=== PATIENT | female | born 2005 | race Caucasian/White ===

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

== ENCOUNTER 2024-07-21 09:46 | Emergency (ER) | payer SELFPAY ==
[2024-07-21 10:40] LABS: Specific Gravity 1.029 (1.005-1.030)
[2024-07-21] MEDS ORDERED: DIPHENHYDRAMINE 50 MG/ML VIAL ONE (10:40)
[2024-07-21] MEDS ORDERED: METOCLOPRAMIDE 10 MG/2mL INJ ONE (10:40)
[2024-07-21 10:41] LABS: Specific Gravity 1.029 (1.005-1.030); Sqamous Epithelial <5 /HPF (None Seen); Urine Bacteria None Seen /HPF (<20); Urine Bilirubin NEGATIVE (Negative); Urine Blood 2+ (Negative); Urine Clarity Turbid (Clear); Urine Color Yellow (Yellow); Urine Culture Reflex Order NOT NEEDED; Urine Glucose NEGATIVE (Negative); Urine Ketones 1+ (Negative); Urine Micro Reflex YN NO BILL MICROSCOPIC; Urine Mucus 4+ /HPF (None Seen); Urine Nitrite NEGATIVE (Negative); Urine Protein 1+ (Negative); Urine Urobilinogen 1+ (Normal); Urine WBC <5 /HPF (<5); Urine Yeast (Budding) Trace /HPF (None Seen)
[2024-07-21] MEDS ORDERED: NA CHLORIDE 0.9% 1,000 ML ONE (10:41)
[2024-07-21 10:58] LABS: Absolute Eosinophils 0.1 K/uL (0-0.5); Absolute Lymphocytes (CBC) 2.8 K/uL (0.7-4.9); Absolute Monocytes 0.3 K/uL (0.1-1.3); Absolute Neutrophil 3.2 K/uL (1.8-8.0); Basophils % 0.6 % (0-1.3); Eosinophils % 2.3 % (0-4.4); Hematocrit 39.5 % (36.0-45.0); Hemoglobin 13.3 g/dL (12.0-15.0); Lymphocytes % 42.8 % (15.3-44.8); MCH 30.7 pg (27.0-35.0); MCHC 33.6 g/dL (32.0-36.0); MCV 91.4 fL (80-100); Neutrophils % 49.3 % (41.7-73.7); Platelets 344 thou/uL (152-406); RBC Red Blood Cell Count 4.32 M/uL (3.86-4.86); Red Cell Distribution Width 12.8 % (12.1-15.2)
[2024-07-21 11:18] LABS: Anion Gap 5.5 mEq/L (5.0-15.0); Potassium 3.5 mEq/L (3.5-5.1)
--- NOTE | 2024-07-21 13:01 | RAD REPORT ---
EXAMINATION: ONE VIEW CHEST XR CLINICAL INDICATION: Female, 19 years old.COUGH TECHNIQUE: 1 View, AP supine, X-ray of the chest was performed. [id number]. COMPARISON: 11/09/2017 FINDINGS: Lungs and pleura: Subtle nodularity in the lung bases bilaterally. No effusion. Heart and mediastinum: Normal heart size. Unremarkable mediastinal contours. Osseous structures: No acute abnormality. Tubes/lines: None Other: None. IMPRESSION: Question some subtle nodularity in the lung bases that could reflect mild infection or inflammation. No consolidative pneumonia.
--- NOTE | 2024-07-21 13:15 | EDPHYS ---
Physician Documentation [facility] Name: Prashanth Otoole Age: 19 yrs Sex: Female : 2005 Arrival Date: 07/21/2024 Time: 09:46 Bed 17 Private MD: ED Physician Marcelo Jensen HPI: 07/21 11:33 This 19 yrs old Female presents to ER via Ambulatory with complaints of SICK FOR 2 ec2 WEEKS. 11:33 Patient arrives today for feeling unwell ongoing for approximately 2 weeks. Patient ec2 reports cough and congestion and increased fatigue and malaise. Some nausea and generally feeling unwell.. Historical: - Allergies: 10:04 FLU VACCINE; hb 10:04 Omnicef; hb 10:04 PECANS; hb 10:04 Strawberries; hb - Home Meds: 10:04 None [Active]; hb - PMHx: 10:04 Anemia; Chronic pain; ibs; Major Depressive Disorder; Schizophrenia; sciatica; hb - Immunization history:: Adult Immunizations up to date. - Infectious Disease History:: Denies. - Social history:: Smoking status: Patient denies any tobacco usage or history of. ROS: 11:33 Constitutional: as per hpi ec2 Exam: 11:33 Constitutional: GEN: NAD Head: atraumatic Eyes: EOMI Ears: External ears are ec2 normal. CV: regular rate LUNGS: no respiratory distress, no wheezes, no rales, no rhonchi ABD: non-distended SKIN: no evidence of rashes MSK: no evidence of trauma Vital Signs: 10:02 BP 105 / 67; Pulse 86; Resp 16; Temp 98.5(O); Pulse Ox 100% on R/A; Weight 47.63 kg; hb Height 5 ft. 3 in. ; Pain 3/10; 10:02 Body Mass Index 18.60 (47.63 kg, 160.02 cm) hb 10:02 Pain Scale: Adult hb MDM: 11:13 Medical Screening Exam initiated ec2 11:33 Data reviewed: vital signs. ED course: Patient arrives today for 2 weeks of the upper ec2 respiratory symptoms. Examination is unrevealing. Will obtain viral swabs and lab work as well as chest x-ray. Differential includes viral infection, pneumonia, UTI.. 11:34 ED course: Patient arrives today for feeling unwell ongoing for approximately 2 weeks. ec2 Patient reports cough and congestion and increased fatigue and malaise. Some nausea and generally feeling unwell metabolic profile is unrevealing, urine is noninfectious appearing. CBC is nonactionable, testing negative. Patient declined flu and COVID testing.. 13:02 ED course: Chest x-ray with possible pneumonia, will start the patient on antibiotic ec2 therapy and have the patient follow-up PCP. Return precautions given.. 07/21 10:07 Order name: CBC with Diff; Complete Time: ec2 07/21 10:07 Order name: BMP; Complete Time: ec2 07/21 10:07 Order name: UAM; Complete Time: ec2 07/21 10:07 Order name: Test, Urine; Complete Time: ec2 07/21 11:33 Order name: CXR XRAY; Complete Time: 13:02 ec2 Administered Medications: 10:55 Drug: NS 0.9% IV 1000 ml IV at 1000 ml once; to be given as a bolus over 60 minutes ll1 Route: IV; Rate: 1000 ml; Site: left antecubital; 10:55 Drug: metoCLOPramide IVP 10 mg IVP once; over 1 to 2 minutes Route: IVP; Site: left ll1 antecubital; 10:56 Drug: diphenhydrAMINE IVP 25 mg IVP once Route: IVP; Site: left antecubital; ll1 Disposition Summary: 07/21/24 13:14 Discharge Ordered Notes: Location: Home ec2 Condition: Stable ec2 Diagnosis - Pneumonia, unspecified organism ec2 Followup: ec2 - With: Private Physician - When: - Reason: Re-evaluation by your physician Discharge Instructions: - Discharge Summary Sheet ec2 - Community-Acquired Pneumonia, Adult ec2 Forms: - Medication Reconciliation Form ec2 - Antibiotic Education ec2 - Prescription Opioid Use ec2 - Patient Portal Instructions ec2 - Leadership Thank You Letter ec2 Prescriptions: - Augmentin 875-125 mg Oral tablet - take 1 tablet ORAL route every 12 hours for 7 days; 14 tablet; Refills: 0, ec2 Product Selection Permitted Signatures: Dispatcher [employer] EDSola Elena RN RN Gera, Lynsay, RN RN ll1 Jensen, Marcelo, MD MD ec2
--- NOTE | 2024-07-21 13:15 | ER ---
Nurse's Notes [facility] Name: Prashanth Otoole Age: 19 yrs Sex: Female : 2005 Arrival Date: 07/21/2024 Time: 09:46 Bed 17 Private MD: Diagnosis: Pneumonia, unspecified organism Presentation: 07/21 10:02 Chief complaint: Malaise, N/D, headaches, and intermittent subjective fever x 2 weeks. hb Coronavirus screen: Client presents with at least one sign or symptom that may indicate coronavirus-19. Provider contacted for isolation considerations. Ebola Screen: No symptoms or risks identified at this time. Initial Sepsis Screen: Does the patient meet any 2 criteria? No. Patient's initial sepsis screen is negative. Does the patient have a suspected source of infection? No. Patient's initial sepsis screen is negative. Risk Assessment: Do you want to hurt yourself or someone else? Patient reports no desire to harm self or others. Onset of symptoms was July 04, 2024. 10:02 Method Of Arrival: Ambulatory hb 10:02 Acuity: BALBIR 3 hb Historical: - Allergies: 10:04 FLU VACCINE; hb 10:04 Omnicef; hb 10:04 PECANS; hb 10:04 Strawberries; hb - Home Meds: 10:04 None [Active]; hb - PMHx: 10:04 Anemia; Chronic pain; ibs; Major Depressive Disorder; Schizophrenia; sciatica; hb - Immunization history:: Adult Immunizations up to date. - Infectious Disease History:: Denies. - Social history:: Smoking status: Patient denies any tobacco usage or history of. Screenin:48 [facility] ED Fall Risk Assessment (Adult) History of falling in the last 3 months, ll1 including since admission No falls in past 3 months (0 pts) Confusion or Disorientation No (0 pts) Intoxicated or Sedated No (0 pts) Impaired Gait No (0 pts) Mobility Assist Device Used No (0 pt) Altered Elimination No (0 pt) Score/Fall Risk Level 0 - 2 = Low Risk. Abuse screen: Denies threats or abuse. Nutritional screening: No deficits noted. Tuberculosis screening: No symptoms or risk factors identified. Assessment: 10:40 General: Appears in no apparent distress. Behavior is calm, cooperative, appropriate ll1 for age, Reports fever for feeling ill for fatigue for. Pain: Complains of pain in head Quality of pain is described as aching. Neuro: Reports headache weakness. GI: Reports diarrhea, nausea. 10:56 Reassessment: No changes from previously documented assessment. Patient and/or family ll1 updated on plan of care and expected duration. Pain level reassessed. Patient is alert, oriented x 3, equal unlabored respirations, skin warm/dry/pink. 12:48 Reassessment: No changes from previously documented assessment. x-ray at . ll1 Vital Signs: 10:02 BP 105 / 67; Pulse 86; Resp 16; Temp 98.5(O); Pulse Ox 100% on R/A; Weight 47.63 kg; hb Height 5 ft. 3 in. ; Pain 310; 10:02 Body Mass Index 18.60 (47.63 kg, 160.02 cm) hb 10:02 Pain Scale: Adult hb ED Course: 09:52 Patient arrived in ED. mg5 09:53 Marcelo Jensen MD is Attending Physician. ec2 10:04 Triage completed. hb 10:05 Arm band placed on. hb 10:38 Patient placed in an exam room, on a stretcher. ll1 10:48 Patient has correct armband on for positive identification. Provided Education on: ER ll1 procedures and process. 10:55 BMP Sent. nh2 10:55 CBC with Diff Sent. nh2 10:55 Inserted saline lock: 20 gauge in left antecubital area, using aseptic technique. Blood nh2 collected. Flushed with 10 mL NS. 10:56 Warm blanket given. ll1 11:23 Darnell Boss RN is Primary Nurse. ll1 12:57 CXR XRAY In Process Unspecified. EDMS 13:31 No provider procedures requiring assistance completed. IV discontinued, intact, hb bleeding controlled, No redness/swelling at site. Pressure dressing applied. Administered Medications: 10:55 Drug: NS 0.9% IV 1000 ml IV at 1000 ml once; to be given as a bolus over 60 minutes ll1 Route: IV; Rate: 1000 ml; Site: left antecubital; 10:55 Drug: metoCLOPramide IVP 10 mg IVP once; over 1 to 2 minutes Route: IVP; Site: left ll1 antecubital; 10:56 Drug: diphenhydrAMINE IVP 25 mg IVP once Route: IVP; Site: left antecubital; ll1 Medication: 10:48 VIS not applicable for this client. ll1 Outcome: 13:14 Discharge ordered by . ec2 13:32 Discharged to home ambulatory, 13:32 Condition: stable 13:32 Discharge instructions given to patient, Instructed on discharge instructions, follow up and referral plans. medication usage, Demonstrated understanding of instructions, follow-up care, medications, Prescriptions given X 1, 13:32 Patient left the ED. hb Signatures: Dispatcher [employer] EDSola Elena RN RN Darnell Boss RN RN ll1 Marni Quiroz mg5 Marcelo Jensen MD MD ec2 Hector Riddle Jr nh2
[2024-07-21 13:41] VITALS: BP 105/67; TEMP 98.5; O2SAT 100
== END 2024-07-21 13:32 | disposition home or self-care (01) ==
LOC: ER 09:46
DX: J18.9 Pneumonia, unspecified organism (principal)
CPT/HCPCS: 36415; 71045; 80048; 81001; 81025; 85025; 96374; 96375; 99284; J1200; J2765; J7030

== ENCOUNTER 2024-07-27 14:43 | Emergency (ER) | payer OTHER ==
[2024-07-27] MEDS ORDERED: ACETAMINOPHEN 500 MG TAB ONE (15:16)
[2024-07-27] MEDS ORDERED: ONDANSETRON 4 MG/2 ML VIAL ONE (15:16)
[2024-07-27] MEDS ORDERED: FENTANYL CITR 100 MCG/2 ML ONE (15:17)
[2024-07-27 15:59] LABS: Absolute Basophils 0.1 K/uL (0-0.5); Absolute Lymphocytes (CBC) 1.8 K/uL (0.7-4.9); Absolute Monocytes 0.7 K/uL (0.1-1.3); Absolute Neutrophil 13.4 K/uL (1.8-8.0); Basophils % 0.4 % (0-1.3); Eosinophils % 0.3 % (0-4.4); Hematocrit 41.8 % (36.0-45.0); Lymphocytes % 11.1 % (15.3-44.8); MCH 30.3 pg (27.0-35.0); MCHC 33.4 g/dL (32.0-36.0); MCV 90.6 fL (80-100); MPV 8.2 fL (7.6-11.3); Monocytes % 4.6 % (3.3-12.3); Neutrophils % 83.6 % (41.7-73.7); Platelets 376 thou/uL (152-406); RBC Red Blood Cell Count 4.62 M/uL (3.86-4.86); Red Cell Distribution Width 12.8 % (12.1-15.2)
[2024-07-27 16:12] LABS: PT Prothrombin Time 13.8 SECONDS (9.4-12.5); PTT, Activated Partial Thromb 37.9 SECONDS (24.3-36.9); Protime INR 1.24
[2024-07-27 16:13] LABS: Albumin 4.5 g/dL (3.4-5.0); Albumin/Globulin Ratio 1.1 (1.1-1.8); Anion Gap 10.7 mEq/L (5.0-15.0); Bilirubin Total 0.7 mg/dL (0.2-1.0); Globulin 4.1 g/dL (2.3-3.5); Potassium 3.7 mEq/L (3.5-5.1); Protein, Total 8.6 g/dL (6.4-8.2)
[2024-07-27 16:16] LABS: Specific Gravity 1.021 (1.005-1.030); Sqamous Epithelial <5 /HPF (None Seen); Urine Bacteria <20 /HPF (<20); Urine Bilirubin NEGATIVE (Negative); Urine Blood Negative (Negative); Urine Clarity Extremely Turbid (Clear); Urine Color Light-Yellow (Yellow); Urine Culture Reflex Order REFLEXED; Urine Glucose NEGATIVE (Negative); Urine Ketones 1+ (Negative); Urine Microscopic Reflex YN ORDER UMIC; Urine Mucus Slight /HPF (None Seen); Urine Nitrite NEGATIVE (Negative); Urine Protein 1+ (Negative); Urine Urobilinogen Normal (Normal); Urine WBC >50 /HPF (<5); Urine pH 8.5 (5.0-7.0)
[2024-07-27 16:17] LABS: Specific Gravity 1.021 (1.005-1.030)
--- NOTE | 2024-07-27 18:21 | RAD REPORT ---
EXAMINATION: CT Abdomen Pelvis W Contrast CLINICAL INDICATION: Female, 19 years old. Abd pain;Fever;Flank pain TECHNIQUE: CT abdomen and pelvis was performed, after the administration of IV contrast, as per [facility] protocol. Axial, sagittal and coronal reconstructions were obtained. One or more of the following dose reduction techniques were used: Automated exposure control, adjustment of the mA and k V according to patient size, and iterative reconstruction. Unless otherwise specified, incidental findings do not require dedicated imaging follow-up. COMPARISON: No prior exam. FINDINGS: LOWER CHEST: The visualized lung bases are clear. LIVER: Normal in size and contour. Small regions of focal fatty infiltration near the falciform ligam ent fissure. No suspicious focal lesion. BILIARY SYSTEM: No suspicious abnormalities. SPLEEN: Normal size. No focal lesion. PANCREAS: No mass, ductal dilation, or viet-pancreatic fluid. ADRENALS: Normal; no mass. KIDNEYS: Wedge-shaped region of left upper to midpole cortical hypoenhancement with adjacent mild per inephric fat stranding. Normal size and contour otherwise. No hydronephrosis. No radiopaque calculi. URINARY BLADDER: Decompressed limiting evaluation, however mild diffuse wall prominence is noted ante riorly. GASTROINTESTINAL TRACT: No evidence of free air, significant intra-abdominal free fluid, bowel obstru ction or abscess. APPENDIX: Normal appendix. LYMPH NODES: No lymphadenopathy. MUSCULOSKELETAL: No acute or suspicious osseous abnormality. ADDITIONAL FINDINGS: None. IMPRESSION: Wedge-shaped region of left renal cortical hypoenhancement as above, suggesting focal pyelonephritis. Mild diffuse urinary bladder wall prominence noted anteriorly, may suggest ongoing cystitis, although decompression limits evaluation.
[2024-07-27] MEDS ORDERED: KETOROLAC 30 MG/ML INJ ONE (18:54)
[2024-07-27] MEDS ORDERED: CIPROFLOXACIN 400mg IV 400 MG/200 ML BAG IV ONE (18:55)
[2024-07-27] MEDS ORDERED: METOCLOPRAMIDE 10 MG/2mL INJ ONE (18:55)
[2024-07-27] MEDS ORDERED: NA CHLORIDE 0.9% 50 ML ONE (18:56)
[2024-07-27] MEDS ORDERED: DIPHENHYDRAMINE 50 MG/ML VIAL ONE (18:56)
--- NOTE | 2024-07-27 19:02 | EDPHYS ---
Physician Documentation [facility] Name: Prashanth Otoole Age: 19 yrs Sex: Female : 2005 Arrival Date: 07/27/2024 Time: 14:43 Bed 20 Private MD: ED Physician Meño Polanco HPI: 07/27 15:15 This 19 yrs old Female presents to ER via Ambulatory with complaints of Urinary Problem.sb4 15:16 Burning with urination and suprapubic pain began yesterday. Developed a fever this sb4 morning. Also endorses nausea. States that she was hospitalized about a month ago for an antibiotic resistant kidney infection. Feels that her symptoms today are exactly the same as then. Has been on Augmentin for pneumonia. States those symptoms have improved. 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 - Infectious Disease History:: Denies. - Social history:: Smoking status: Patient denies any tobacco usage or history of. Patient/guardian denies using alcohol. ROS: 15:18 Cardiovascular: Negative for chest pain, palpitations, and edema, sb4 15:18 Constitutional: Positive for fatigue, fever, malaise, 15:18 Abdomen/GI: Positive for nausea, 15:18 Back: Positive for flank pain, bilaterally, 15:18 : Positive for burning with urination, 15:18 All other systems are negative, Exam: 15:18 Head/Face: Normocephalic, atraumatic. Eyes: Extra-ocular motions intact. Periorbital sb4 areas with no swelling, redness, or edema. ENT: Mucous membranes moist. Cardiovascular: Regular rate and rhythm with a normal S1 and S2. Respiratory: No increased work of breathing, no retractions or nasal flaring. Skin: Warm, dry with normal turgor. Normal color with no rashes, no lesions, and no evidence of cellulitis. 15:18 Constitutional: The patient appears alert, awake, uncomfortable, 15:18 Abdomen/GI: Palpation: soft, mild abdominal tenderness, in the suprapubic area, 15:18 Back: CVA tenderness, is noted bilaterally, Vital Signs: 15:02 BP 114 / 71; Pulse 94; Resp 17; Temp 101.4(O); Pulse Ox 100% on R/A; MAP 81 mmHg; tm6 Weight 47.63 kg; Height 5 ft. 3 in. ; Pain 7/10; 15:30 BP 99 / 56; db 16:00 BP 91 / 65; Pulse 88; Resp 14; Pulse Ox 100% on R/A; db 16:30 BP 102 / 65; Pulse 91; Resp 18; Pulse Ox 98% on R/A; db 17:30 BP 96 / 62; Pulse 86; Resp 16; Pulse Ox 100% on R/A; db 18:00 BP 100 / 62; Pulse 74; Resp 16; Pulse Ox 99% on R/A; db 18:30 Temp 98.8(O); db 19:39 BP 96 / 58; Pulse 75; Resp 23; Pulse Ox 99% on R/A; jb4 20:14 BP 97 / 68; Pulse 88; Resp 16; Temp 98.3; Pulse Ox 100% on R/A; jb4 15:02 Body Mass Index 18.60 (47.63 kg, 160.02 cm) tm6 15:02 Pain Scale: Adult tm6 MDM: 15:07 Medical Screening Exam initiated sb4 18:33 Data reviewed: vital signs, nurses notes, lab test result(s), radiologic studies, and sb4 as a result, I will discharge patient. Consideration of Admission/Observation Escalation of care including admission/observation considered. Counseling: I had a detailed discussion with the patient and/or guardian regarding the historical points, exam findings, and any diagnostic results supporting the discharge/admit diagnosis, lab results, radiology results, the need for further work-up and treatment in the hospital, to return to the emergency department if symptoms worsen or persist or if there are any questions or concerns that arise at home. Refusal of service: The patient/guardian displays adequate decision making capability and despite a detailed discussion of alternatives, benefits, risks, and consequences refuses: Admission to the hospital for further work-up and treatment. ED course: patient does not want to stay in the hospital, prefers trying outpatient treatment first. will return for any new or worsening symptoms. 07/27 15:14 Order name: Blood Culture Adult (2) 4 07/27 15:14 Order name: CBC with Diff; Complete Time: 16:02 sb4 07/27 15:14 Order name: CMP; Complete Time: 16:14 sb4 07/27 15:14 Order name: Lactate w/ 2H reflex if indic.; Complete Time: 16:22 sb4 07/27 15:14 Order name: Protime (+inr); Complete Time: 16:14 sb4 07/27 15:14 Order name: Ptt, Activated; Complete Time: 16:14 sb4 07/27 15:14 Order name: Urinalysis w/ reflexes; Complete Time: 16:22 sb4 07/27 15:14 Order name: Test, Urine; Complete Time: 16:22 4 07/27 16:24 Order name: Urine Culture [facility] 07/27 15:14 Order name: CT Abd/Pelvis - IV Contrast Only; Complete Time: 18:22 4 07/27 15:14 Order name: Cardiac monitoring; Complete Time: 15:30 4 07/27 15:14 Order name: IV Saline Lock - Large Bore; Complete Time: 16:01 sb4 07/27 15:14 Order name: Labs collected and sent; Complete Time: 16:01 4 07/27 15:14 Order name: O2 Per Protocol; Complete Time: 15:30 4 07/27 15:14 Order name: O2 Sat Monitoring; Complete Time: 15:30 4 07/27 15:14 Order name: Vital Signs; Complete Time: 16:01 sb4 Administered Medications: 15:27 Drug: Acetaminophen PO 1000 mg PO once Route: PO; db 18:16 Follow up: Response: No adverse reaction db 15:49 Drug: Ondansetron IVP 4 mg IVP once; over 2 minutes Route: IVP; Site: right antecubital;db 18:15 Follow up: Response: No adverse reaction db 15:52 Drug: fentaNYL (PF) IVP 25 mcg IVP once Route: IVP; Site: right antecubital; db 18:15 Follow up: Response: No adverse reaction db 19:02 Drug: diphenhydrAMINE IVP 25 mg IVP once Route: IVP; Site: right antecubital; db 20:15 Follow up: Response: No adverse reaction jb4 19:05 Drug: Ketorolac IVP 15 mg IVP once Route: IVP; Site: right antecubital; db 20:15 Follow up: Response: No adverse reaction; Marked relief of symptoms jb4 19:08 Drug: Ciprofloxacin IVPB 400 mg 200 ml IVPB once over 60 mins Volume: 200 ml; Route: db IVPB; Infused Over: 60 mins; Site: right antecubital; 20:16 Follow up: Response: No adverse reaction; IV Status: Completed infusion; IV Intake: jb4 200ml 19:08 Drug: metoCLOPramide IVP 10 mg IVP once; over 1 to 2 minutes Route: IVP; Site: right db antecubital; 20:15 Follow up: Response: No adverse reaction; Marked relief of symptoms jb4 Disposition Summary: 07/27/24 19:02 Discharge Ordered Notes: Location: Home sb4 Problem: new sb4 Symptoms: have improved sb4 Condition: Stable sb4 Diagnosis - Pyelonephritis acute sb4 Followup: sb4 - With: Emergency Department - When: As needed - Reason: Fever > 102 F, Worsening of condition Discharge Instructions: - Discharge Summary Sheet sb4 - Pyelonephritis, Adult, [id number] sb4 Forms: - Antibiotic Education sb4 - Patient Portal Instructions sb4 - Leadership Thank You Letter sb4 Prescriptions: - Cipro 500 mg Oral Tablet - take 1 tablet ORAL route every 12 hours for 7 days; 14 tablet; Refills: 0, sb4 Product Selection Permitted Addendum: 07/31/2024 08:17 Co-signature as Attending Physician, Meño Polanco MD I reviewed the patient's care r n provided by the Advanced Practice Provider and agree with the diagnosis and treatment plan. Signatures: Dispatcher [employer] Meño Gonsales MD MD rn Benton, Danielle RN RN Tigist Louis PA-C PA-C sb4 Oli Monge RN RN tm6 Grzegorz Ivy RN jb4
--- NOTE | 2024-07-27 19:02 | ER ---
Nurse's Notes [facility] Name: Prashanth Otoole Age: 19 yrs Sex: Female : 2005 Arrival Date: 07/27/2024 Time: 14:43 Bed 20 Private MD: Diagnosis: Pyelonephritis acute Presentation: 07/27 15:02 Chief complaint: Patient states: suprapubic pain, hurts to breathe down my spine. Sharp tm6 pains on bottom of back, both sides. Burning when I pee, fever, frequency of urination. Started yesterday. Coronavirus screen: Client denies travel out of the [place] in the last 14 days. Ebola Screen: Patient negative for fever greater than or equal to 101.5 degrees Fahrenheit, and additional compatible Ebola Virus Disease symptoms Patient denies exposure to infectious person. Patient denies travel to an Ebola-affected area in the 21 days before illness onset. No symptoms or risks identified at this time. Initial Sepsis Screen: Does the patient meet any 2 criteria? Temp <36.0*C (96.8*F)) or > 38.3*C (100.9*F). HR > 90 bpm. Does the patient have a suspected source of infection? No. Patient's initial sepsis screen is negative. Risk Assessment: Do you want to hurt yourself or someone else? Patient reports no desire to harm self or others. Onset of symptoms was July 26, 2024. 15:02 Method Of Arrival: Ambulatory tm6 15:02 Acuity: BALBIR 3 tm6 Triage Assessment: 15:04 General: Appears in no apparent distress. Behavior is calm, cooperative. Pain: tm6 Complains of pain in back and pelvis Pain currently is 10 out of 10 on a pain scale. EENT: No signs and/or symptoms were reported regarding the EENT system. Neuro: Level of Consciousness is awake, alert, obeys commands, Oriented to person, place, time, situation. Cardiovascular: Reports lightheadedness, Patient's skin is warm and dry. Respiratory: Airway is patent Respiratory effort is even, unlabored, Respiratory pattern is regular, symmetrical. GI: No signs and/or symptoms were reported involving the gastrointestinal system. Abdomen is flat, non-distended. : Reports burning with urination, pain in suprapubic area flank(s), urinary frequency. Derm: No signs and/or symptoms reported regarding the dermatologic system. Musculoskeletal: Reports pain in back and pelvis. 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 - Infectious Disease History:: Denies. - Social history:: Smoking status: Patient denies any tobacco usage or history of. Patient/guardian denies using alcohol. Screenin:03 [facility] ED Fall Risk Assessment (Adult) History of falling in the last 3 months, db including since admission No falls in past 3 months (0 pts) Confusion or Disorientation No (0 pts) Intoxicated or Sedated No (0 pts) Impaired Gait No (0 pts) Mobility Assist Device Used No (0 pt) Altered Elimination No (0 pt) Score/Fall Risk Level 0 - 2 = Low Risk Oriented to surroundings, Maintained a safe environment. Abuse screen: Denies threats or abuse. Denies injuries from another. Nutritional screening: No deficits noted. Tuberculosis screening: No symptoms or risk factors identified. Assessment: 16:03 Reassessment: Patient appears in no apparent distress at this time. Patient and/or db family updated on plan of care and expected duration. Pain level reassessed. Patient is alert, oriented x 3, equal unlabored respirations, skin warm/dry/pink. General: Appears in no apparent distress. comfortable, Behavior is calm, cooperative. Neuro: Level of Consciousness is awake, alert, obeys commands, Oriented to person, place, time, situation. Respiratory: Airway is patent Respiratory effort is even, unlabored, Respiratory pattern is regular, symmetrical. 16:29 Reassessment: Patient appears in no apparent distress at this time. Patient and/or db family updated on plan of care and expected duration. Pain level reassessed. Patient is alert, oriented x 3, equal unlabored respirations, skin warm/dry/pink. 18:32 Reassessment: Patient appears in no apparent distress at this time. Patient and/or db family updated on plan of care and expected duration. Pain level reassessed. Patient is alert, oriented x 3, equal unlabored respirations, skin warm/dry/pink. Patient states feeling better. Patient states symptoms have improved. 19:36 Reassessment: Pt resting in bed with eyes closed, respirations are even and unlabored jb4 with no s/s of pain or distress noted. D/c pending completion of IV antibiotics. 20:14 Reassessment: Patient appears in no apparent distress at this time. Patient and/or jb4 family updated on plan of care and expected duration. Pain level reassessed. Patient is alert, oriented x 3, equal unlabored respirations, skin warm/dry/pink. Pt denies wanting to be admitted and verbalizes wanting to go home. Vital Signs: 15:02 BP 114 / 71; Pulse 94; Resp 17; Temp 101.4(O); Pulse Ox 100% on R/A; MAP 81 mmHg; tm6 Weight 47.63 kg; Height 5 ft. 3 in. ; Pain 7/10; 15:30 BP 99 / 56; db 16:00 BP 91 / 65; Pulse 88; Resp 14; Pulse Ox 100% on R/A; db 16:30 BP 102 / 65; Pulse 91; Resp 18; Pulse Ox 98% on R/A; db 17:30 BP 96 / 62; Pulse 86; Resp 16; Pulse Ox 100% on R/A; db 18:00 BP 100 / 62; Pulse 74; Resp 16; Pulse Ox 99% on R/A; db 18:30 Temp 98.8(O); db 19:39 BP 96 / 58; Pulse 75; Resp 23; Pulse Ox 99% on R/A; jb4 20:14 BP 97 / 68; Pulse 88; Resp 16; Temp 98.3; Pulse Ox 100% on R/A; jb4 15:02 Body Mass Index 18.60 (47.63 kg, 160.02 cm) tm6 15:02 Pain Scale: Adult tm6 ED Course: 14:45 Patient arrived in ED. im 14:46 Tigist Betancourt [facility]C [facility] sb4 14:46 Meño Polanco MD is Attending Physician. sb4 15:04 Triage completed. tm6 15:04 Arm band placed on left wrist. tm6 15:06 Allergy band placed. tm6 15:29 Renea Prather, RN is Primary Nurse. db 15:35 First set of blood cultures drawn by me. db 15:47 Second set of blood cultures drawn by me. Initial lab(s) drawn, by me, sent to lab. db Urine collected: clean catch specimen, clear. Inserted saline lock: 22 gauge in right antecubital area, using aseptic technique. Blood collected. Flushed with 10 mL NS. 16:55 CT Abd/Pelvis - IV Contrast Only In Process Unspecified. EDMS 19:39 Provided Education on: plan of care. jb4 20:14 No provider procedures requiring assistance completed. IV discontinued, intact, jb4 bleeding controlled, No redness/swelling at site. Pressure dressing applied. Administered Medications: 15:27 Drug: Acetaminophen PO 1000 mg PO once Route: PO; db 18:16 Follow up: Response: No adverse reaction db 15:49 Drug: Ondansetron IVP 4 mg IVP once; over 2 minutes Route: IVP; Site: right antecubital;db 18:15 Follow up: Response: No adverse reaction db 15:52 Drug: fentaNYL (PF) IVP 25 mcg IVP once Route: IVP; Site: right antecubital; db 18:15 Follow up: Response: No adverse reaction db 19:02 Drug: diphenhydrAMINE IVP 25 mg IVP once Route: IVP; Site: right antecubital; db 20:15 Follow up: Response: No adverse reaction jb4 19:05 Drug: Ketorolac IVP 15 mg IVP once Route: IVP; Site: right antecubital; db 20:15 Follow up: Response: No adverse reaction; Marked relief of symptoms jb4 19:08 Drug: Ciprofloxacin IVPB 400 mg 200 ml IVPB once over 60 mins Volume: 200 ml; Route: db IVPB; Infused Over: 60 mins; Site: right antecubital; 20:16 Follow up: Response: No adverse reaction; IV Status: Completed infusion; IV Intake: jb4 200ml 19:08 Drug: metoCLOPramide IVP 10 mg IVP once; over 1 to 2 minutes Route: IVP; Site: right db antecubital; 20:15 Follow up: Response: No adverse reaction; Marked relief of symptoms jb4 Medication: 19:39 VIS not applicable for this client. jb4 Intake: 20:16 IV: 200ml; Total: 200ml. jb4 Outcome: 19:02 Discharge ordered by . sb4 20:14 Discharged to home ambulatory, jb4 20:14 Condition: stable 20:14 Discharge instructions given to patient, Instructed on discharge instructions, follow up and referral plans. medication usage, Demonstrated understanding of instructions, follow-up care, medications, Prescriptions given X 1, 20:16 Patient left the ED. jb4 Signatures: Dispatcher [employer] EDGrzegorz Zuleta RN RN jb4 Renea Prather RN RN Tigist Louis, PA-C PA-C sb4 Arianna Garcia Tawney, RN RN tm6 Corrections: (The following items were deleted from the chart) 19:39 19:36 Reassessment: Pt resting in bed with eyes closed, respirations are even and jb4 unlabored with no s/s of pain or distress noted. jb4
[2024-07-27 20:29] VITALS: BP 97/68; TEMP 98.3; O2SAT 100
== END 2024-07-27 20:16 | disposition home or self-care (01) ==
LOC: ER 14:43
DX: N10 Acute pyelonephritis (principal)
CPT/HCPCS: 96365; 87040 ×2; 87088; 85025; 81001; 87086; 36415; 81025; 85610; 83605; 85730; 87077; 87186; 80053; 74177; 96375; 99284; Q9967; J2765; J1200; J3010; J2405; J0744

== ENCOUNTER 2024-07-28 06:08 | Inpatient (IN) | payer OTHER ==
--- NOTE | 2024-07-28 06:55 | EDPHYS ---
Physician Documentation [facility] Name: Prashanth Otoole Age: 19 yrs Sex: Female : 2005 Arrival Date: 07/28/2024 Time: 06:08 Bed 7 Private MD: ED Physician Marcelo Jensen HPI: 07/28 06:52 This 19 yrs old Female presents to ER via Wheelchair with complaints of Low ec2 Back Pain, Nausea/Vomiting, Abdominal Pain. 06:53 Patient arrives today for evaluation of abdominal pain along with nausea and vomiting ec2 and back pain. Was recently seen here last night, external records show that she was diagnosed with pyelonephritis. Also had a normal lactic acid as well as an elevated white blood cell count. Tried to go home as she felt well enough however returns with persistent symptoms.. Historical: - Allergies: 06:33 FLU VACCINE; ha1 06:33 PECANS; ha1 06:33 Omnicef; ha1 06:33 Strawberries; ha1 - Home Meds: 06:33 trazodone 50 mg Oral tab 1 tab nightly [Active]; ha1 - PMHx: 06:33 Anemia; Chronic pain; Fibromyalgia; ibs; Major Depressive Disorder; Schizophrenia; ha1 sciatica; - Immunization history:: Adult Immunizations up to date. - Infectious Disease History:: Denies. - Social history:: Smoking status: Patient denies any tobacco usage or history of. ROS: 06:53 Constitutional: as per hpi ec2 Exam: 06:53 Constitutional: GEN: NAD Head: atraumatic Eyes: EOMI Ears: External ears are ec2 normal. CV: Tachycardia LUNGS: no respiratory distress ABD: non-distended, soft, tender in the abdomen SKIN: no evidence of rashes MSK: no evidence of trauma Vital Signs: 06:15 BP 103 / 68; Pulse 103; Resp 17 S; Temp 103(O); Pulse Ox 98% on R/A; Weight 47.63 kg; ha1 Height 5 ft. 3 in. ; 08:39 BP 107 / 58; Pulse 90; Resp 16; Temp 100.4(O); Pulse Ox 98% on R/A; iw 10:38 BP 92 / 64; Pulse 79; Resp 19; Pulse Ox 100% on R/A; MAP 72 mmHg; Pain 0/10; tm6 06:15 Body Mass Index 18.60 (47.63 kg, 160.02 cm) ha1 10:38 Pain Scale: Adult tm6 MDM: 06:33 Medical Screening Exam initiated ec2 06:53 Data reviewed: vital signs. ED course: Patient arrives today with persistent abdominal ec2 pain along with nausea and feeling unwell. Examination remarkable for abdominal findings as noted above. Patient is tachycardic as well as febrile. Will obtain repeat septic workup, will admit for sepsis secondary to pyelonephritis. External workup showed that patient had a full septic workup with a normal lactic acid as well as an elevated white blood cell count. Will admit for sepsis secondary to pyelonephritis. Discussed with hospitalist who agrees accept the patient for admission.. 07/28 08:15 Order name: Lactate w/ 2H reflex if indic. EDMS 07/28 08:15 Order name: Comprehensive Metabolic Panel EDMS 07/28 08:15 Order name: Lipase EDMS 07/28 08:19 Order name: CBC with Automated Diff EDMS 07/28 08:52 Order name: Urinalysis w/ reflexes EDMS 07/28 08:52 Order name: Test, Urine EDMS 07/28 08:54 Order name: CBC with Automated Diff EDMS 07/28 08:54 Order name: Comprehensive Metabolic Panel EDMS 07/28 08:54 Order name: Lipase EDMS 07/28 08:54 Order name: Lactate w/ 2H reflex if indic. EDMS 07/28 08:55 Order name: Manual Differential EDMS 07/28 06:17 Order name: IV Saline Lock; Complete Time: 07:53 ec2 07/28 06:17 Order name: Labs collected and sent; Complete Time: 07:53 ec2 07/28 06:33 Order name: Accucheck; Complete Time: 07:53 ec2 07/28 06:33 Order name: Cardiac monitoring; Complete Time: 07:53 ec2 07/28 06:33 Order name: EKG - Nurse/Tech; Complete Time: 09:40 ec2 07/28 06:33 Order name: IV Saline Lock - Large Bore; Complete Time: 07:53 ec2 07/28 06:33 Order name: O2 Per Protocol; Complete Time: 07:53 ec2 07/28 06:33 Order name: O2 Sat Monitoring; Complete Time: 07:53 ec2 07/28 06:33 Order name: Vital Signs; Complete Time: 09:40 ec2 Administered Medications: 06:46 CANCELLED (Physician Discretion): [id number] mg 200 ml IVPB once over 60 mins ec2 07:33 Drug: Acetaminophen PO 1000 mg PO once Route: PO; iw 10:41 Follow up: Response: No adverse reaction tm6 07:33 Drug: Ibuprofen PO 800 mg PO once Route: PO; iw 10:40 Follow up: Response: No adverse reaction tm6 07:40 Drug: Ondansetron IVP 4 mg IVP once; over 2 minutes Route: IVP; Site: left antecubital; iw 10:41 Follow up: Response: No adverse reaction tm6 07:40 Drug: NS 0.9% IV 1000 ml IV at 1 bolus Per protocol; to be given as a bolus over 60 iw minutes Route: IV; Rate: 1 bolus; Site: left antecubital; 10:41 Follow up: Response: No adverse reaction; IV Status: Completed infusion; IV Intake: tm6 1000ml 07:40 Drug: Cefepime IVPB 1 grams IVPB at 200 ml/hr once over 30 mins; (mix in NS 100 mL) iw Route: IVPB; Rate: 200 ml/hr; Infused Over: 30 mins; Site: left antecubital; 10:40 Follow up: Response: No adverse reaction; IV Status: Completed infusion; IV Intake: tm6 100ml 08:33 Drug: vancoMYCIN IVPB 1 grams IVPB once over 2 hrs Route: IVPB; Infused Over: 2 hrs; hb Site: left antecubital; 10:56 Follow up: Response: No adverse reaction; IV Status: Completed infusion; IV Intake: tm6 250ml Disposition Summary: 07/28/24 06:55 Hospitalization Ordered Notes: Hospitalization Status: Inpatient Admission ec2 Provider: Bucyk Plasencia ec2 Location: Telemetry/[facility] (Inpatient) ec2 Condition: Stable ec2 Problem: an ongoing problem ec2 Symptoms: have improved ec2 Bed/Room Type: Standard ec2 Room Assignment: 212(07/28/24 09:43) sp Diagnosis - Pyelonephritis acute ec2 - Sepsis, unspecified organism ec2 Forms: - Medication Reconciliation Form ec2 - SBAR form ec2 - Leadership Thank You Letter ec2 Critical care time excluding procedures: 07:03 Critical care time: Bedside Care: 25 minutes, Consultation: 5 minutes. Total time: 30 ec2 minutes Signatures: Dispatcher [employer] EDMS MatthewLupilloEllenVeronica Currie RN RN Sola De RN RN Linn Downs RN RN ha1 Marcelo Jensen MD MD ec2 Oli Monge RN tm6 Corrections: (The following items were deleted from the chart) 06:46 06:36 Ciprofloxacin IVPB 400 mg 200 ml IVPB once over 60 mins ordered. ec2 ec2 06:55 06:53 ED course: Patient arrives today with persistent abdominal pain along with nausea ec2 and feeling unwell. Examination remarkable for abdominal findings as noted above. Patient is tachycardic as well as febrile. Will obtain repeat septic workup, will admit for sepsis secondary to pyelonephritis. External workup showed that patient had a full septic workup with a normal lactic acid as well as an elevated white blood cell count.. ec2 09:03 08:50 CBC+H.LAB.BRZ ordered. EDMS EDMS 09:03 08:50 COMPREHENSIVE METABOLIC PANEL+C.LAB.BRZ ordered. EDMS EDMS 09:03 08:50 LIPASE+C.LAB.BRZ ordered. EDMS EDMS 09:03 08:50 Test, Urine+UC.LAB.BRZ ordered. EDMS EDMS 09:03 08:50 Urinalysis+U.LAB.BRZ ordered. EDMS EDMS 09:03 08:51 LACTATE+C.LAB.BRZ ordered. EDMS EDMS 09:03 08:51 BLOOD CULTURE*+BA.LAB.BRZ ordered. EDMS EDMS 09:43 06:55 ec2 sp
--- NOTE | 2024-07-28 06:55 | ER ---
Nurse's Notes [facility] Name: Prashanth Otoole Age: 19 yrs Sex: Female : 2005 Arrival Date: 07/28/2024 Time: 06:08 Bed 7 Private MD: Diagnosis: Pyelonephritis acute;Sepsis, unspecified organism Presentation: 07/28 06:15 Chief complaint: Patient states: low back pain, fever, nausea, vomiting, and abdominal ha1 pain. 06:15 Coronavirus screen: Vaccine status: Patient reports being unvaccinated. Ebola Screen: ha1 No symptoms or risks identified at this time. Initial Sepsis Screen: Does the patient meet any 2 criteria? No. Patient's initial sepsis screen is negative. Does the patient have a suspected source of infection? No. Patient's initial sepsis screen is negative. Risk Assessment: Do you want to hurt yourself or someone else? Patient reports no desire to harm self or others. Onset of symptoms was July 28, 2024. 06:15 Method Of Arrival: Wheelchair ha1 06:15 Acuity: BALBIR 3 ha1 Triage Assessment: 10:00 General: Appears in no apparent distress. Behavior is calm, cooperative. Pain: tm6 Complains of pain in back. Pain: Complains of pain in back and abdomen. EENT: No signs and/or symptoms were reported regarding the EENT system. Neuro: Level of Consciousness is awake, alert, obeys commands, Oriented to person, place, time, situation. GI: Reports lower abdominal pain, upper abdominal pain. Historical: - Allergies: 06:33 FLU VACCINE; ha1 06:33 PECANS; ha1 06:33 Omnicef; ha1 06:33 Strawberries; ha1 - Home Meds: 06:33 trazodone 50 mg Oral tab 1 tab nightly [Active]; ha1 - PMHx: 06:33 Anemia; Chronic pain; Fibromyalgia; ibs; Major Depressive Disorder; Schizophrenia; ha1 sciatica; - Immunization history:: Adult Immunizations up to date. - Infectious Disease History:: Denies. - Social history:: Smoking status: Patient denies any tobacco usage or history of. Screenin:34 Abuse screen: Denies threats or abuse. Denies injuries from another. Nutritional ha1 screening: No deficits noted. Tuberculosis screening: No symptoms or risk factors identified. 10:39 [facility] ED Fall Risk Assessment (Adult) History of falling in the last 3 months, tm6 including since admission No falls in past 3 months (0 pts) Confusion or Disorientation No (0 pts) Intoxicated or Sedated No (0 pts) Impaired Gait No (0 pts) Mobility Assist Device Used No (0 pt) Altered Elimination No (0 pt) Score/Fall Risk Level 0 - 2 = Low Risk Oriented to surroundings, Maintained a safe environment, Educated pt \T\ family on fall prevention, incl call for assistance when getting out of bed. Assessment: 07:45 Reassessment: pt had blood cultures drawn last night, requesting that we use those iw cultures, Dr. Jensen notified, agrees to use previous cultures. 08:39 Reassessment: Patient appears in no apparent distress at this time. Patient and/or iw family updated on plan of care and expected duration. Pain level reassessed. Patient is alert, oriented x 3, equal unlabored respirations, skin warm/dry/pink. Patient states feeling better. 10:38 Reassessment: Patient and/or family updated on plan of care and expected duration. Pain tm6 level reassessed. Patient is alert, oriented x 3, equal unlabored respirations, skin warm/dry/pink. Vital Signs: 06:15 BP 103 / 68; Pulse 103; Resp 17 S; Temp 103(O); Pulse Ox 98% on R/A; Weight 47.63 kg; ha1 Height 5 ft. 3 in. ; 08:39 BP 107 / 58; Pulse 90; Resp 16; Temp 100.4(O); Pulse Ox 98% on R/A; iw 10:38 BP 92 / 64; Pulse 79; Resp 19; Pulse Ox 100% on R/A; MAP 72 mmHg; Pain 0/10; tm6 06:15 Body Mass Index 18.60 (47.63 kg, 160.02 cm) ha1 10:38 Pain Scale: Adult tm6 ED Course: 06:12 Patient arrived in ED. jj6 06:16 Bora Polk RN is Primary Nurse. jj7 06:33 Marcelo Jensen MD is Attending Physician. ec2 06:33 Triage completed. ha1 06:55 Bucky Plasencia is Hospitalizing Provider. ec2 07:15 Missed attempt(s): 22 gauge Bleeding controlled, band aid applied, catheter tip intact. ty 07:21 Missed attempt(s): 22 gauge Bleeding controlled, band aid applied, catheter tip intact. ty 07:45 Initial lab(s) drawn, by me, sent to lab. Inserted saline lock: 22 gauge in left iw antecubital area, using aseptic technique. Blood collected. Flushed with 10 mL NS. 08:06 Primary Nurse role handed off by Bora Polk RN iw 08:06 Veronica Amin, DENA is Primary Nurse. iw 08:47 Patient has correct armband on for positive identification. Bed in low position. Call iw light in reach. Side rails up X2. Client placed on continuous cardiac and pulse oximetry monitoring. NIBP monitoring applied. gambling monitor on. 10:00 Arm band placed on right wrist. tm6 10:40 No provider procedures requiring assistance completed. Patient admitted, IV remains in tm6 place. 10:55 Provided Education on: need for admit. tm6 Administered Medications: 06:46 CANCELLED (Physician Discretion): [id number] mg 200 ml IVPB once over 60 mins ec2 07:33 Drug: Acetaminophen PO 1000 mg PO once Route: PO; iw 10:41 Follow up: Response: No adverse reaction tm6 07:33 Drug: Ibuprofen PO 800 mg PO once Route: PO; iw 10:40 Follow up: Response: No adverse reaction tm6 07:40 Drug: Ondansetron IVP 4 mg IVP once; over 2 minutes Route: IVP; Site: left antecubital; iw 10:41 Follow up: Response: No adverse reaction tm6 07:40 Drug: NS 0.9% IV 1000 ml IV at 1 bolus Per protocol; to be given as a bolus over 60 iw minutes Route: IV; Rate: 1 bolus; Site: left antecubital; 10:41 Follow up: Response: No adverse reaction; IV Status: Completed infusion; IV Intake: tm6 1000ml 07:40 Drug: Cefepime IVPB 1 grams IVPB at 200 ml/hr once over 30 mins; (mix in NS 100 mL) iw Route: IVPB; Rate: 200 ml/hr; Infused Over: 30 mins; Site: left antecubital; 10:40 Follow up: Response: No adverse reaction; IV Status: Completed infusion; IV Intake: tm6 100ml 08:33 Drug: vancoMYCIN IVPB 1 grams IVPB once over 2 hrs Route: IVPB; Infused Over: 2 hrs; Site: left antecubital; 10:56 Follow up: Response: No adverse reaction; IV Status: Completed infusion; IV Intake: tm6 250ml Medication: 10:55 VIS not applicable for this client. tm6 Intake: 10:40 IV: 100ml; Total: 100ml. tm6 10:41 IV: 1000ml; Total: 1100ml. tm6 10:56 IV: 250ml; Total: 1350ml. tm6 Outcome: 06:55 Decision to Hospitalize by Provider. ec2 10:55 Admitted to Med/surg accompanied by tech, via wheelchair, room 212, with chart, tm6 10:55 Condition: stable 10:55 Instructed on the need for admit, 10:55 Patient left the ED. tm6 Signatures: Veronica Amin, DENA FERNANDES Sola De RN RN Kaley Del Rosario jj6 Linn Downs RN RN ha1 Bora Polk RN RN jj7 Marcelo Jensen MD MD ec2 Oli Monge RN RN tm6 Marcelo Reyna
[2024-07-28] MEDS ORDERED: ACETAMINOPHEN 500 MG TAB ONE (07:18)
[2024-07-28] MEDS ORDERED: VANCOMYCIN 1 GM/VIAL ONE (07:18)
[2024-07-28] MEDS ORDERED: IBUPROFEN 400 MG TAB ONE (07:19)
[2024-07-28] MEDS ORDERED: NA CHLORIDE 0.9% 100 ML ONE (07:19)
[2024-07-28] MEDS ORDERED: NA CHLORIDE 0.9% 250 ML ONE (07:19)
[2024-07-28] MEDS ORDERED: CEFEPIME 1 GM/VIAL ONE (07:19)
[2024-07-28] MEDS ORDERED: ONDANSETRON 4 MG/2 ML VIAL ONE (07:35)
[2024-07-28] MEDS ORDERED: NA CHLORIDE 0.9% 1,000 ML ONE (07:35)
[2024-07-28 08:08] LABS: Absolute Monocytes 1.1 K/uL (0.1-1.3); Absolute Neutrophil 16.2 K/uL (1.8-8.0); Basophils % 0.3 % (0-1.3); Hematocrit 38.1 % (36.0-45.0); Hemoglobin 12.5 g/dL (12.0-15.0); Lymphocytes % 5.4 % (15.3-44.8); MCH 29.9 pg (27.0-35.0); MCHC 32.9 g/dL (32.0-36.0); MCV 90.9 fL (80-100); MPV 8.7 fL (7.6-11.3); Neutrophils % 88.3 % (41.7-73.7); Platelets 301 thou/uL (152-406); RBC Red Blood Cell Count 4.19 M/uL (3.86-4.86); Red Cell Distribution Width 12.5 % (12.1-15.2)
[2024-07-28 08:14] LABS: Albumin 3.4 g/dL (3.4-5.0); Albumin/Globulin Ratio 0.9 (1.1-1.8); Anion Gap 8.5 mEq/L (5.0-15.0); Bilirubin Total 0.9 mg/dL (0.2-1.0); Globulin 3.8 g/dL (2.3-3.5); Potassium 3.5 mEq/L (3.5-5.1); Protein, Total 7.2 g/dL (6.4-8.2)
[2024-07-28 08:57] LABS: Specific Gravity > 1.030 (1.005-1.030); Urine Bilirubin NEGATIVE (Negative); Urine Blood Negative (Negative); Urine Clarity Clear (Clear); Urine Color Light-Yellow (Yellow); Urine Glucose Negative (Negative); Urine Ketones Negative (Negative)
[2024-07-28 08:58] LABS: Sqamous Epithelial <5 /HPF (None Seen); Urine Culture Reflex Order NOT NEEDED; Urine Microscopic Reflex YN NO UMIC; Urine Nitrite NEGATIVE (Negative); Urine Protein 1+ (Negative); Urine RBC <5 /HPF (None Seen); Urine Urobilinogen 1+ mg/dL (0.2-1.0); Urine WBC <5 /HPF (<5); Urine pH 7.5 (5.0-7.0)
[2024-07-28 08:59] LABS: Specific Gravity > 1.030 (1.005-1.030)
[2024-07-28 09:05] LABS: Blood Morphology Comment NOT SEEN (NOT SEEN); Differential Total Cells Count 100; Lymphocytes 7 % (15-42); Monocytes 6 % (0-10); Platelet Estimate ADEQ; Segmented Neutrophils 87 % (40-80)
[2024-07-28] MEDS ORDERED: MORPHINE 2 MG/ML SYR IV PRN (10:12)
--- NOTE | 2024-07-28 10:24 | P.HP ---
Certification for Inpatient Patient admitted to: Inpatient With expected LOS: >2 Midnights Patient will require the following post-hospital care: None Practitioner: I am a practitioner with admitting privileges, knowledge of patient current condition, hospital course, and medical plan of care. Services: Services provided to patient in accordance with Admission requirements found in Title 42 Section 412.3 of the Code of Federal Regulations Patient History Date of Service: 07/28/24 Reason for admission: Left Pyelonephritis History of Present Illness: Prashanth Otoole is a 19 year old with Pmhx Anemia, Chronic pain, Fibromyalgia, Major Depressive Disorder, Schizophrenia, sciatica who presents to the ED with chief complaint of left flank pain. Reportedly, she came to the ED on 07/27 but decided to go home then returned to the ED this morning (07/28) feeling worse. On examination, she was shaking, nauseous, with general malaise. She reports being discharged from [place] a week and a half ago. She was recently treated for PNA and UTI. Laboratory evaluation WBC 18.4, HR 103, Temp 103, UA culture growing gram negative rods CT abd/pelvis reports "Wedge-shaped region of left renal cortical hypoenhancement as above, suggesting focal pyelonephritis. Mild diffuse urinary bladder wall prominence noted anteriorly, may suggest ongoing cystitis, although decompression limits evaluation." Prashanth will be admitted to hospitalist service for further treatment of left pyelonephritis. Allergies cefdinir [From Omnicef] Allergy (Verified 07/28/24 11:26) Unknown influenza virus vaccine, specific Allergy (Verified 07/28/24 11:26) Nausea/Vomiting pecan nut Allergy (Verified 07/28/24 11:26) Rash Strawberries Allergy (Uncoded 11/09/17 21:20) Unknown Home Medications: NK [No Home Meds] 07/28/24 - Past Medical/Surgical History -: Anemia -: Chronic pain -: Fibromyalgia -: IBS -: major depressive disorder -: schizophrenia -: sciatica Past Surgical History: Reviewed- Non-Contributory - Social History Smoking Status: Never smoker Alcohol use: No CD- Drugs: No Review of Systems General: Fever, Chills, Weakness, Malaise Musculoskeletal: Back Pain (left sided) Physical Examination - Physical Exam General: Alert, Oriented x3, Acute distress HEENT: Atraumatic, Normocephalic, PERRLA Neck: Supple, 2+ carotid pulse no bruit Respiratory: Clear to auscultation bilaterally, Normal air movement Cardiovascular: No edema, Normal pulses, Normal S1 S2, Irregular heart rate/rhythm (normal rate and rhythm) Capillary refill: <2 Seconds Gastrointestinal: Normal bowel sounds, Soft and benign Musculoskeletal: No clubbing Integumentary: No rashes Neurological: Normal speech, Normal tone - Studies Laboratory Data (last 24 hrs) 07/28/24 07/28/24 07/28/24 07:47 07:47 06:17 WBC 18.40 H Hgb 12.5 D Hct 38.1 Plt Count 301 Sodium 134 L Cancelled Potassium 3.5 Cancelled BUN 11 Cancelled Creatinine 0.88 Cancelled Glucose 103 Cancelled Total Bilirubin 0.9 Cancelled AST 16 Cancelled ALT 25 Cancelled Alkaline Phosphatase 81 D Cancelled Lipase 15 Cancelled 07/28/24 06:17 WBC Cancelled Hgb Cancelled Hct Cancelled Plt Count Cancelled Sodium Potassium BUN Creatinine Glucose Total Bilirubin AST ALT Alkaline Phosphatase Lipase Assessment and Plan - Plan Assessment and Plan Sepsis 2/2 left pyelonephritis UTI -sepsis criteria Temp 103, HR 103, WBC 18, left kidney infection -07/27 CT abd/pelvis reports "Wedge-shaped region of left renal cortical hypoenhancement as above, suggesting focal pyelonephritis. Mild diffuse urinary bladder wall prominence noted anteriorly, may suggest ongoing cystitis, although decompression limits evaluation." -Reports recent discharge from [facility], recently treated for PNA and UTI -Follow blood cultures -UA culture growing gram negative rods -Cefepime and Vanc on the floor -IVF -Strict I and O Anemia -H/H -Continue to monitor -iron studies pending Chronic pain Fibromyalgia IBS Major Depressive Disorder Schizophrenia sciatica -Continue home medications DVT ppx lovenox Full code LOS 2-3 days Discharge Plan: Home Plan to discharge in: 48 Hours - Advance Directives Does patient have a Living Will: No Does patient have a Durable POA for Healthcare: No
[2024-07-28 11:35] VITALS: BMI 18.6
[2024-07-28] MEDS: NA CHLORIDE 0.9% 1,000 ML IV SCH (13:57)
[2024-07-28] MEDS: ACETAMINOPHEN 325 MG TABLET PO PRN (13:58)
[2024-07-28] MEDS: ONDANSETRON 4 MG/2 ML VIAL IV PRN (13:58)
[2024-07-28] MEDS: PROMETHAZINE INJ 25 MG/ML AMP IV ONE (18:19)
[2024-07-28] MEDS: ENOXAPARIN 40 MG/0.4 ML SQ SCH (20:06)
[2024-07-28] MEDS: MELATONIN 3 MG TABLET PO PRN (21:25)
[2024-07-29] MEDS: CEFTRIAXONE 1,000 MG in NA CHLORIDE 0.9% 50 ML IVPB SCH (12:26)
--- NOTE | 2024-07-29 18:13 | P.PN ---
Date of Service: 07/29/24 Subjective Awake and feeling very well eating without nausea conversing well fever decreased She is a hard stick and was unable to obtain labs today Will continue to monitor, give IV antibiotics, and likely discharge in the AM ROS 10 point ROS as noted above, otherwise negative Physical Exam General: Alert, Oriented x3, NAD HEENT: Atraumatic, Normocephalic, PERRLA Neck: Supple, 2+ carotid pulse no bruit Respiratory: Clear to auscultation bilaterally, Normal air movement Cardiovascular: No edema, Normal pulses, Normal S1 S2, RRR Capillary refill: <2 Seconds Gastrointestinal: Normal bowel sounds, Soft and benign on palpation Musculoskeletal: No clubbing Integumentary: No rashes Neurological: Normal speech, Normal tone Vitals Reviewed Problem list Sepsis 2/2 left pyelonephritis UTI Anemia Chronic pain Fibromyalgia IBS Major Depressive Disorder Schizophrenia sciatica Assessment and Plan Sepsis 2/2 left pyelonephritis UTI -sepsis criteria Temp 103, HR 103, WBC 18, left kidney infection -Febrile OVN, continue to monitor -07/27 CT abd/pelvis reports "Wedge-shaped region of left renal cortical hypoenhancement as above, suggesting focal pyelonephritis. Mild diffuse urinary bladder wall prominence noted anteriorly, may suggest ongoing cystitis, although decompression limits evaluation." -Reports recent discharge from [facility], recently treated for PNA and UTI -Follow blood cultures NGTD -UA culture growing E coli sensitive to ciprofloxacin -Cefepime and Vanc changed to rocephin then ciprofloxacin -IVF -Strict I and O, UOP 1200 today Anemia -H/H -Continue to monitor -iron studies pending Chronic pain Fibromyalgia IBS Major Depressive Disorder Schizophrenia sciatica -Continue home medications DVT ppx lovenox Full code LOS 2-3 days Discharge Plan: Home Plan to discharge in: 24 hours
[2024-07-29 20:57] VITALS: BP 111/65; TEMP 99.1
[2024-07-29] MEDS: CIPROFLOXACIN 400mg IV 400 MG/200 ML BAG IV SCH (21:17)
[2024-07-29] MEDS: IBUPROFEN 600 MG TAB PO PRN (21:29)
[2024-07-29 22:58] VITALS: O2SAT 99
[2024-07-30 00:01] LABS: Absolute Eosinophils 0.1 K/uL (0-0.5); Absolute Lymphocytes (CBC) 2.1 K/uL (0.7-4.9); Absolute Neutrophil 4.3 K/uL (1.8-8.0); Basophils % 0.3 % (0-1.3); Eosinophils % 0.7 % (0-4.4); Hematocrit 38.5 % (36.0-45.0); MCH 30.3 pg (27.0-35.0); MCHC 33.8 g/dL (32.0-36.0); MCV 89.5 fL (80-100); MPV 9.3 fL (7.6-11.3); Monocytes % 13.3 % (3.3-12.3); Neutrophils % 57.7 % (41.7-73.7); Nucleated Red Blood Cells % 0.2 % (0-0); Platelets 179 thou/uL (152-406); Red Cell Distribution Width 12.9 % (12.1-15.2)
[2024-07-30 00:04] LABS: Phosphorus 2.5 mg/dL (2.5-4.9)
[2024-07-30 00:05] LABS: Magnesium 1.8 mg/dL (1.6-2.4)
--- NOTE | 2024-07-31 06:59 | P.DS ---
Admission Date: 07/28/24 Discharge Date: 07/30/24 Disposition: AMA-LEFT AGAINST MEDICAL ADVIC Reason for Admission: Left Pyelonephritis Brief History of Present Illness: Diagnosis HPI 07/28/24 Prashanth Otoole is a 19 year old with Pmhx Anemia, Chronic pain, Fibromyalgia, Major Depressive Disorder, Schizophrenia, sciatica who presents to the ED with chief complaint of left flank pain. Reportedly, she came to the ED on 07/27 but decided to go home then returned to the ED this morning (07/28) feeling worse. On examination, she was shaking, nauseous, with general malaise. She reports being discharged from [place] a week and a half ago. She was recently treated for PNA and UTI. Laboratory evaluation WBC 18.4, HR 103, Temp 103, UA culture growing gram negative rods CT abd/pelvis reports "Wedge-shaped region of left renal cortical hypoenhancement as above, suggesting focal pyelonephritis. Mild diffuse urinary bladder wall prominence noted anteriorly, may suggest ongoing cystitis, although decompression limits evaluation." Prashanth will be admitted to hospitalist service for further treatment of left pyelonephritis. Hospital Course: [text] is a pleasant [text] with a past medical history significant for [text] who was admitted to the [facility] on [text] for [text]. [text] On [date], [text] was seen on morning rounds and deemed medically stable for discharge. [text] was discharged with instructions to schedule follow-up appointments with [text]. [text] was provided prescriptions for [text]. Vital Signs/Physical Exam: Temp Pulse Resp BP Pulse Ox 99.1 F 73 16 111/65 99 07/29/24 20:00 07/29/24 20:00 07/29/24 20:00 07/29/24 20:00 07/29/24 20:00 Laboratory Data at Discharge: WBC Cancelled 07/30/24 05:00 Hgb Cancelled 07/30/24 05:00 Hct Cancelled 07/30/24 05:00 Plt Count Cancelled 07/30/24 05:00 Sodium Cancelled 07/30/24 05:00 Potassium Cancelled 07/30/24 05:00 BUN Cancelled 07/30/24 05:00 Creatinine Cancelled 07/30/24 05:00 Glucose Cancelled 07/30/24 05:00 Phosphorus Cancelled 07/30/24 05:00 Magnesium Cancelled 07/30/24 05:00 Total Bilirubin 0.9 mg/dL (0.2-1.0) 07/28/24 07:47 AST 16 U/L (15-37) 07/28/24 07:47 ALT 25 U/L (13-56) 07/28/24 07:47 Alkaline Phosphatase 81 U/L (45-117) D 07/28/24 07:47 Lipase 15 U/L (13-75) 07/28/24 07:47 Home Medications: NK [No Home Meds] 07/28/24 Physician Discharge Instructions: 1. Please call and schedule a follow-up appointment with your PCP in 3-5 days - Please follow-up with your PCP for medication refills/adjustments -Follow up with PCP and IG testing as that was a send out lab 2. Continue regular diet 3. No activity restrictions 4. Return to the ED if symptoms worsen New medications Followup: NONE,NONE [Primary Care Provider] -
== END 2024-07-30 00:02 | disposition left against medical advice (07) | DRG 872 ==
LOC: ER 06:08 → ERHOLD 07:48 → 2ND 10:29
PROVIDERS: ADMIT Hospitalist; ATTEND Hospitalist
DX: A41.9 Sepsis, unspecified organism (principal); N10 Acute pyelonephritis; F33.9 Major depressive disorder, recurrent, unspecified; D64.9 Anemia, unspecified; F20.9 Schizophrenia, unspecified; G89.29 Other chronic pain; M79.7 Fibromyalgia
CPT/HCPCS: 36415; 80048; 80053; 81003; 81025; 83605; 83690; 83735; 84100; 85025; 96365; 96366; 96375; 99285; J0692; J0696; J0744; J1650; J2405; J2550; J7030; J7050

== ENCOUNTER 2024-10-06 18:30 | Emergency (ER) | payer OTHER ==
--- NOTE | 2024-10-06 18:47 | EDPHYS ---
Physician Documentation [facility] Name: Prashanth Otoole Age: 19 yrs Sex: Female : 2005 Arrival Date: 10/06/2024 Time: 18:30 Bed IW1 Private MD: ED Physician Meño Polanco HPI: 10/06 21:29 This 19 yrs old Female presents to ER via Ambulatory with complaints of Rash - sb4 Spreading. 21:29 Patient reports a ringworm spot on her abdomen that she noticed about 1 week ago. She sb4 has been putting [id number] antifungal cream on it but it is not going away. Today, she noticed that she has had several other ringworm spots pop up on her arms and legs. She states that they itch a lot. 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 Does report 1 prior occurrence of this. 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 - Infectious Disease History:: Denies. - Social history:: Smoking status: Patient denies any tobacco usage or history of. ROS: 21:29 Constitutional: Negative for fever, chills, and weight loss, sb4 21:29 Skin: Positive for rash, 21:29 All other systems are negative, Exam: 21:29 Constitutional: This is a well developed, well nourished patient who is awake, alert, sb4 and in no acute distress. Head/Face: Normocephalic, atraumatic. Eyes: Extra-ocular motions intact. Periorbital areas with no swelling, redness, or edema. ENT: Mucous membranes moist. Respiratory: No increased work of breathing, no retractions or nasal flaring. 21:29 Skin: rash a mild rash is noted, ringworm, on the abdomen, right arm, left arm, right leg and left leg, Vital Signs: 18:35 BP 125 / 77; Pulse 67; Resp 16; Temp 97.5; Pulse Ox 100% ; ko1 19:30 BP 128 / 73; Pulse 64; Resp 15; Temp 98.1; Pulse Ox 100% ; me1 MDM: 18:46 Medical Screening Exam initiated sb4 21:32 Data reviewed: vital signs, nurses notes, and as a result, I will discharge patient. sb4 Counseling: I had a detailed discussion with the patient and/or guardian regarding the historical points, exam findings, and any diagnostic results supporting the discharge/admit diagnosis, the need for outpatient follow up, for definitive care, to return to the emergency department if symptoms worsen or persist or if there are any questions or concerns that arise at home. 10/07 00:03 Differential diagnosis: urticaria, viral exanthem, tinea, impetigo, cellulitis, sb4 pityriasis. Historians other than the Patient: Parent: mother. Administered Medications: No medications were administered Disposition Summary: 10/06/24 18:46 Discharge Ordered Notes: Location: Home sb4 Problem: new sb4 Symptoms: have improved sb4 Condition: Stable sb4 Diagnosis - Tinea corporis sb4 Followup: sb4 - With: Private Physician - When: As needed - Reason: Recheck today's complaints, Re-evaluation by your physician Discharge Instructions: - Discharge Summary Sheet sb4 - Body Ringworm sb4 Forms: - Patient Portal Instructions sb4 - Leadership Thank You Letter sb4 Prescriptions: - terbinafine HCl 250 mg Oral tablet - take 1 tablet ORAL route daily for 2 wks; 14 tablet; Refills: 0, Product sb4 Selection Permitted Addendum: 10/09/2024 07:01 Co-signature as Attending Physician, Meño Polanco MD I reviewed the patient's care r n provided by the Advanced Practice Provider and agree with the diagnosis and treatment plan. Signatures: Meño Polanco MD MD rn Oliver, Kathy, RN RN ko1 Tigist Betancourt, PAKm PAKm sb4 Corrections: (The following items were deleted from the chart) 10/06 18:40 18:38 Home Meds: trazodone 50 mg Oral tab 1 tab nightly; ko1 ko1
--- NOTE | 2024-10-06 18:47 | ER ---
Nurse's Notes [facility] Name: Prashanth Otoole Age: 19 yrs Sex: Female : 2005 Arrival Date: 10/06/2024 Time: 18:30 Bed IW1 Private MD: Diagnosis: Tinea corporis Presentation: 10/06 18:35 Chief complaint: Patient states: I think I have ringworm and Mari used OTC meds and its ko1 not working. Coronavirus screen: At this time, the client does not indicate any symptoms associated with coronavirus-19. Ebola Screen: No symptoms or risks identified at this time. Initial Sepsis Screen: Does the patient meet any 2 criteria? No. Patient's initial sepsis screen is negative. Does the patient have a suspected source of infection? No. Patient's initial sepsis screen is negative. Risk Assessment: Do you want to hurt yourself or someone else? Patient reports no desire to harm self or others. Onset of symptoms is unknown. 18:35 Method Of Arrival: Ambulatory ko1 18:35 Acuity: BALBIR 4 ko1 18:35 Acuity: BALBIR 5 ko1 Triage Assessment: 18:38 General: Appears in no apparent distress. Behavior is calm, cooperative, appropriate ko1 for age. Pain: Denies pain. 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 - Infectious Disease History:: Denies. - Social history:: Smoking status: Patient denies any tobacco usage or history of. Screenin:27 [facility] ED Fall Risk Assessment (Adult) History of falling in the last 3 months, me1 including since admission No falls in past 3 months (0 pts) Confusion or Disorientation No (0 pts) Intoxicated or Sedated No (0 pts) Impaired Gait No (0 pts) Mobility Assist Device Used No (0 pt) Altered Elimination No (0 pt) Score/Fall Risk Level 0 - 2 = Low Risk Maintained a safe environment, Provided non-skid footwear, Hourly rounding (assess needs \T\ fall precautionary measures) done. Abuse screen: Denies threats or abuse. Nutritional screening: No deficits noted. Tuberculosis screening: No symptoms or risk factors identified. Assessment: 19:27 General: Appears comfortable, well groomed, well developed, well nourished, Behavior is me1 calm, cooperative, appropriate for age, Reports. Pain: Denies pain. Neuro: Level of Consciousness is awake, alert, obeys commands, Oriented to person, place, time, situation, Appropriate for age. Cardiovascular: Patient's skin is warm and dry. Respiratory: Airway is patent Trachea midline Respiratory effort is even, unlabored, Respiratory pattern is regular, symmetrical. GI: No signs and/or symptoms were reported involving the gastrointestinal system. : No signs and/or symptoms were reported regarding the genitourinary system. EENT: No signs and/or symptoms were reported regarding the EENT system. Derm: Rash noted that is red, on abdomen. Musculoskeletal: No signs and/or symptoms reported regarding the musculoskeletal system. Vital Signs: 18:35 BP 125 / 77; Pulse 67; Resp 16; Temp 97.5; Pulse Ox 100% ; ko1 19:30 BP 128 / 73; Pulse 64; Resp 15; Temp 98.1; Pulse Ox 100% ; me1 ED Course: 18:33 Patient arrived in ED. ra3 18:34 Tigist Betancourt PA-C is PHCP. sb4 18:34 Meño Polanco MD is Attending Physician. sb4 18:38 Triage completed. ko1 18:38 Arm band placed on right wrist. Patient placed in waiting room, Patient notified of ko1 wait time. 19:25 Becky Sweeney, RN is Primary Nurse. me1 19:27 Patient has correct armband on for positive identification. Bed in low position. Call me1 light in reach. Side rails up X2. Provided Education on: POC. Verbalized understanding.. 19:27 No provider procedures requiring assistance completed. Patient did not have IV access me1 during this emergency room visit. Administered Medications: No medications were administered Medication: 19:27 VIS not applicable for this client. me1 Outcome: 18:46 Discharge ordered by . sb4 19:30 Discharged to home ambulatory, me1 19:30 Condition: stable 19:30 Discharge instructions given to patient, Instructed on discharge instructions, follow up and referral plans. medication usage, Demonstrated understanding of instructions, follow-up care, medications, Prescriptions given X 1, 19:31 Patient left the ED. me1 Signatures: Kusum Renee, RN RN ko1 Tigist Betancourt, PA-C PA-C sb4 Becky Sweeney RN RN me1 Ning Dill ra3 Corrections: (The following items were deleted from the chart) 18:40 18:38 Home Meds: trazodone 50 mg Oral tab 1 tab nightly; ko1 ko1 18:55 18:35 Chief complaint: Patient states: I think I have ringworm and Mari used OTC meds me1 and its not working ko1
[2024-10-06 19:59] VITALS: O2SAT 100
[2024-10-06 20:01] VITALS: BP 128/73; TEMP 98.1
== END 2024-10-06 19:31 | disposition home or self-care (01) ==
LOC: ER 18:30
DX: B35.4 Tinea corporis (principal)
CPT/HCPCS: 99283